=== PATIENT | female | born 1945 | race Caucasian/White ===

== ENCOUNTER → 2017-05-20 | Outpatient (CLI) | payer OTHER ==
[~2017-05-20] MED LIST: ASPI81TA28 PO; ATOR-54 PO; B-CO1TAB29 PO; CALC-20 PO; CYAN3INJ; ESTR0.3T PO; MULTCAP31 PO; OMEG10007 PO; PNT500 PO; SULI200T PO; THYR90TA PO
--- NOTE | 2017-05-21 12:09 | MAMMOGRAPHY REPORT ---
BILATERAL DIGITAL SCREENING MAMMOGRAM WITH CAD: 05/20/2017 CLINICAL HISTORY: Routine screening. Patient has no complaints. TECHNIQUE: Bilateral CC and MLO views were obtained. Current study was also evaluated with a Compute r Aided Detection (CAD) system. COMPARISON: Comparison is made to exams dated: 05/12/2016 mammogram, 05/09/2015 mammogram, 05/04/2013 [facility] mogram, 05/03/2012 mammogram, 04/30/2011 mammogram, and 04/29/2010 mammogram - [facility] er. BREAST COMPOSITION: The tissue of both breasts is heterogeneously dense, which may obscure small mas ses. FINDINGS: There is a 12 mm asymmetry in the middle one third of the right breast, slightly lateral t o the posterior nipple line on the CC view, for which additional spot compression tomosynthesis views and possible ultrasound are recommended. This is thought to project superiorly on the MLO view. No other suspicious mass, architectural distortion or cluster of microcalcifications is seen bilatera lly. IMPRESSION: ACR BI-RADS CATEGORY 0: INCOMPLETE EVALUATION: NEED ADDITIONAL IMAGING EVALUATION The 12 mm asymmetry in the middle one third of the right breast needs additional evaluation. The patient will be called to schedule an appointment. Approximately 10% of breast cancers are not detected with mammography. A negative mammographic report should not delay biopsy if a clinically suggestive mass is present. Emily Vogel M.D. ay/:05/20/2017 16:48:33 Voice Engineer: Cierra CERVANTES(Gopi)(Doreen), [facility] letter sent: Addl Imaging 0 BI-RADS Code: ACR BI-RADS Category 0: Incomplete Evaluation: Need Additional Imaging Evaluation
== END | disposition home or self-care (01) ==
LOC: C.MAMM 14:07
DX: Z12.31 Encounter for screening mammogram for malignant neoplasm of breast (principal); N64.89 Other specified disorders of breast

== ENCOUNTER → 2017-06-03 | Outpatient (CLI) | payer OTHER ==
--- NOTE | 2017-06-03 13:43 | MAMMOGRAPHY REPORT ---
UNILATERAL RIGHT DIGITAL DIAGNOSTIC MAMMOGRAM TOMOSYNTHESIS AND TARGETED RIGHT ULTRASOUND: 06/03/2017 CLINICAL HISTORY: 71 year-old woman called back from screening mammography for a 12 mm asymmetry in t he middle one third of the right breast, best seen on the CC view. TECHNIQUE: Spot compression right CC and MLO 2-D and tomosynthesis images were obtained. COMPARISON: Comparison is made to exams dated: 05/20/2017 mammogram, 05/12/2016 mammogram, 05/09/2015 ma mmogram, 05/08/2014 mammogram, 05/04/2013 mammogram, and 05/03/2012 mammogram - [facility]. BREAST COMPOSITION: The tissue of the right breast is heterogeneously dense, which may obscure small masses. FINDINGS: There is near complete effacement of the 12 mm asymmetry in the middle one third of the rig ht breast, along the posterior nipple line on the CC view with the spot compression CC view and corre sponding tomosynthesis images. There is no evidence of a persistent mass or focal area of architectu ral distortion. No suspicious microcalcifications are seen. No corresponding abnormality is identif ied on the spot compression MLO view. Targeted ultrasound was performed in the right breast from the 11:00 through 1:00, retroareolar and 5 :00 through 7:00 axes. Normal fibroglandular tissue is seen without a discrete solid or cystic mass. IMPRESSION: ACR BI-RADS CATEGORY 2: BENIGN, TARGETED ULTRASOUND ACR BI-RADS CATEGORY 2: BENIGN Effacement of the 12 mm asymmetry in the middle one third of the right breast, and no suspicious sono graphic correlate identified. This most likely represented normal overlapping fibroglandular tissue. There is no mammographic or targeted sonographic evidence of malignancy. Return to annual mammogram screening schedule is recommended. The patient has been verbally notified of the results. Approximately 10% of breast cancers are not detected with mammography. A negative mammographic report should not delay biopsy if a clinically suggestive mass is present. Emily Vogel M.D. ay/:06/03/2017 10:06:08 Billet Straightener: Juliet CERVANTES(Gopi)(Doreen), [facility] letter sent: Normal 1/2 BI-RADS Code: ACR BI-RADS Category 2: Benign Ultrasound BI-RADS: ACR BI-RADS Category 2: Benign
== END | disposition home or self-care (01) ==
LOC: C.MAMM 09:39
DX: R92.8 Other abnormal and inconclusive findings on diagnostic imaging of breast (principal); N64.89 Other specified disorders of breast

== ENCOUNTER 2025-07-22 10:48 | Inpatient (IN) ==
--- NOTE | 2025-07-22 10:57 | Emergency Department Note ---
Impression & Plan Hypertensive emergency, Elevated troponin I level ED Provider Note NAME: ANGIE SANDS AGE: 80 SEX: F : 1945 ARRIVES VIA: Ambulance INFORMANT: Patient, ED PROVIDER(S): Jose Angel Casanova MD CHIEF COMPLAINT: "I feel unwell." MEDICAL DECISION MAKING: Patient presents with the above with feeling general unwellness but not so much in terms of specific symptoms. The patient's did report that she was seen at a PCPs office and LOC even about a week or so ago and was noted to have elevated blood pressure at that time. IV was and blood work was obtained. Patient was ordered IV labetalol 10 mg IV fluids. Nausea medication also provided IV Zofran 4 mg. Upon reassessment the patient's blood pressure was improved in the 160s over 80s. Patient with a normal white count hemoglobin and platelet count kidney function is unremarkable. Patient's troponin is elevated at 14.3. Given this and the patient may have had elevated blood pressure over the last 2 weeks as the patient was "too scared" to check her blood pressure at home even though she was feeling unwell. Patient also had reported that during her most recent primary care visit that her blood pressure was high at the time of evaluation at that time. Patient currently denies any chest pain or shortness of breath. EKG without signs of obvious ischemia. Patient does feel improved. Labs negative. I did speak with the on-call hospitalist Dr. Porras and the patient was admitted to the medicine service. Critical Care: I have personally spent 35 minutes of critical care time in direct management of this patient. This includes bedside care, interpretation of diagnostic studies, and testing, discussion with consultants, patient, and family members, and other require inpatient management activities. This 35 minutes is in excess of all separately billable procedures. Discussion w/ other healthcare providers: Dr. Porras Prior /Outside records reviewed: none Differential diagnosis: Infection, dehydration, metabolic abnormality, hypo/hyperglycemia, electrolyte imbalance, anemia, UTI, pneumonia, thyroid dysfunction among others were considered. Diagnostics, as interpreted by me: ECG: Normal sinus rhythm, rate of 84, normal intervals, normal axis T wave version lead III no ST elevations. Cardiac monitoring: An order was placed for continuous cardiac monitoring. The monitor shows a rate of 87 with sinus rhythm. Patient was placed on pulse oximetry Medical decision rules: None Imaging studies: I informally interpreted the patient's chest x-ray does not show obvious pneumonia or pneumothorax with formal report to follow. HPI: Patient presents today due to concern for feeling generally unwell. The patient states that she has been feeling unwell for at least the last 2 weeks. She reports that he she had a similar episode to today and is about a month ago. The patient did have significant nausea but no vomiting. No chest pain or shortness of breath. Patient reports that she was seen at a PCP office and Paxton Rodgers through [facility] and was told that her blood pressure was significantly elevated at that time. She does not report taking blood pressure medication but does take other meds. No alcohol tobacco or drug use. No known sick contacts or recent travel. Patient denies any falls or trauma. Patient denies any concerns for tick bites or Lyme's. No urinary symptoms. Of note review of the patient's medication list does show losartan 100 mg. Review the patient's fill history does not show evidence of filling the losartan this calendar year. PAST MEDICAL HISTORY: See Below PAST SURGICAL HISTORY: See Below SOCIAL HISTORY: See Below HOME MEDICATIONS: See Below ALLERGIES: See Below VITALS: See Below PHYSICAL EXAMINATION: GENERAL: NAD, non-toxic. Wearing glasses. EYE EXAM: Normal conjunctiva. PERRL, no anisocoria and EOM's grossly intact w/o pain. OROPHARYNX: Moist mucus membranes, grossly normal dentition. NECK: Trachea midline, no stridor. Supple, no nuchal rigidity, no adenopathy, non-tender. No signs of meningismus. FROM of the neck with good chin to chest and neck extension. LUNGS: Clear to auscultation. Normal chest wall mechanics. HEART: NSR, no MRG. ABDOMEN: Abdomen soft, non-tender, no masses, no rebound or guarding. BACK: No CVA TTP. SKIN: No rashes and no bruising. UPPER EXTREMITIES: Upper extremities are grossly normal. LOWER EXTREMITIES: Grossly normal, no edema. NEURO EXAM: Awake and alert, follows commands, no obvious facial asymmetry, normal speech, moves all 4 extremities. Past Med/Surg History Problem List (Updated 07/22/25 @ 16:20 by Jose Angel Casanova MD) Hypertensive emergency (Acute) Elevated troponin I level (Acute) Hypertensive urgency TRISTAN positive Arthritis of knee, right Encounter for pre-operative examination Medical History Hypertension Chronic back pain Osteoarthritis Urinary incontinence GERD (gastroesophageal reflux disease) Neuropathy NON DIABETIC > BILAT FEET Hypothyroidism Depression Anxiety Migraine HX Hyperlipidemia HX Surgical History History of dilatation and curettage History of breast biopsy LEFT History of colonoscopy History of laparoscopy History of hysterectomy History of cataract surgery BILAT Social History Smoking Status: Never smoker Second Hand Exposure: Yes ( KID); Do You Dip or Chew Tobacco: No; Hx Alcohol Use: Yes Alcohol type: beer Hx Substance Use: No Preferred Language: Pashto Communication Ability: Effective Visual Impairment: No Limitations Wheel Filler Required: No Beliefs That Will Affect Care: None Current Living Situation: Alone Feels Safe at Home: Yes Assistive Devices: Cane and Glasses Allergies Allergies Allergy/AdvReac Type Severity Reaction Status Date / Time amoxicillin Allergy Unknown RASH/ITCHIN Verified 07/22/25 12:48 G meloxicam Allergy Unknown RASH/ITCHIN Verified 07/22/25 12:48 G Sulfa (Sulfonamide Allergy Unknown RASH/ITCHIN Verified 07/22/25 12:48 Antibiotics) G Home Meds Home Medications Medication Instructions Recorded Confirmed loratadine 10 mg tablet 10 mg PO HS 03/30/20 07/22/25 thyroid (pork) 90 mg tablet 90 mg PO QAM 03/30/20 07/22/25 ([place] Thyroid) tramadol 50 mg tablet 50 mg PO QAM 03/30/20 07/22/25 conjugated estrogens 0.3 mg tablet 0.3 mg PO HS 02/18/24 07/22/25 (Premarin) cyanocobalamin (vitamin B-12) 1,000 mcg IM MONTHLY 02/18/24 07/22/25 1,000 mcg/mL injection solution ergocalciferol (vitamin D2) 1,250 1,250 mcg PO WK 02/18/24 07/22/25 mcg (50,000 unit) capsule mirabegron 50 mg tablet,extended 50 mg PO QAM 02/18/24 07/22/25 release 24 hr (Myrbetriq) aspirin 81 mg tablet,delayed 81 mg PO QAM 07/22/25 07/22/25 release esomeprazole magnesium 40 mg 40 mg PO DAILYBB 07/22/25 07/22/25 capsule,delayed release sqwdgbql-frbimohx-xiawa acid 500 1 tab PO [facility] 07/22/25 07/22/25 mcg-lutein 5 mg-zeaxanth 1 mg tablet (Macular Vitamin) paroxetine HCl 30 mg tablet 30 mg PO [facility] 07/22/25 07/22/25 Results & Data (ED) Vital Signs Vital Signs - 24 hr 07/22/25 10:35 07/22/25 11:00 07/22/25 11:06 Temperature 36.4 C L Temperature Source Oral Pulse Rate 89 87 Pulse Rate [Apical] Pulse Rate from SpO2 Sensor Respiratory Rate 20 Blood Pressure 200/102 H 197/106 H Blood Pressure [Left Arm] Blood Pressure Mean 134 147 Blood Pressure Mean [Left Arm] Pulse Oximetry 99 Oxygen Delivery Method Room Air Sepsis Recent Fever Within 48 Hours No Sepsis New/Unexplained Change in Mental Status No Sepsis Action Taken by Nursing No Action Required 07/22/25 11:21 07/22/25 11:22 07/22/25 11:45 Temperature Temperature Source Pulse Rate 98 H 76 Pulse Rate [Apical] Pulse Rate from SpO2 Sensor 77 Respiratory Rate 23 Blood Pressure 208/122 H 208/122 H 164/108 H Blood Pressure [Left Arm] Blood Pressure Mean 154 126 Blood Pressure Mean [Left Arm] Pulse Oximetry 93 Oxygen Delivery Method Sepsis Recent Fever Within 48 Hours Sepsis New/Unexplained Change in Mental Status Sepsis Action Taken by Nursing 07/22/25 12:00 07/22/25 12:24 07/22/25 12:33 Temperature Temperature Source Pulse Rate 79 79 77 Pulse Rate [Apical] Pulse Rate from SpO2 Sensor 77 79 77 Respiratory Rate 17 14 18 Blood Pressure 169/81 H 166/86 H Blood Pressure [Left Arm] Blood Pressure Mean 110 112 Blood Pressure Mean [Left Arm] Pulse Oximetry 88 L 91 91 Oxygen Delivery Method Sepsis Recent Fever Within 48 Hours Sepsis New/Unexplained Change in Mental Status Sepsis Action Taken by Nursing 07/22/25 13:04 Temperature Temperature Source Pulse Rate Pulse Rate [Apical] 85 Pulse Rate from SpO2 Sensor Respiratory Rate 20 Blood Pressure Blood Pressure [Left Arm] 203/103 H Blood Pressure Mean Blood Pressure Mean [Left Arm] 136 Pulse Oximetry 95 Oxygen Delivery Method Sepsis Recent Fever Within 48 Hours Sepsis New/Unexplained Change in Mental Status Sepsis Action Taken by [facility] Medications Current Medication List: was personally reviewed by me Laboratory Data Attestation: I reviewed the patient's lab results. 07/22/25 11:24 07/22/25 11:24 Lab Results 07/22/25 Range/Units 11:24 WBC 8.17 (4.8-10.8) K/ul RBC 5.12 (4.20-5.40) M/uL Hgb 13.3 (12.0-16.0) g/dl Hct 42.7 (37.0-47.0) % MCV 83.4 (80.0-100.0) fL MCH 26.0 (25.0-34.0) pg MCHC 31.1 L (32.0-36.0) g/dL RDW Std Deviation 44.4 (36.4-46.3) fL RDW Coeff of Christina 14.7 H (11.5-14.5) % Plt Count 212 (130-400) K/uL MPV 11.6 (9.4-12.4) fL Immature Gran % (Auto) 0.2 % Neut % (Auto) 70.4 % Lymph % (Auto) 16.0 % [place] % (Auto) 12.1 % Eos % (Auto) 1.2 % Baso % (Auto) 0.1 % Neut # (Auto) 5.74 (1.40-6.50) K/uL Lymph # (Auto) 1.31 (1.20-3.40) K/uL [place] # (Auto) 0.99 H (0.11-0.59) K/uL Eos # (Auto) 0.10 (0.00-0.50) K/uL Baso # (Auto) 0.01 (0.00-0.20) K/uL Immature Gran # (Auto) 0.02 (0.01-0.20) K/uL Sodium 136 (136-145) mmol/L Potassium 4.3 (3.5-5.1) mmol/L Chloride 105 (98-107) mmol/L Carbon Dioxide 26 (21-32) mmol/L Anion Gap 5 (3-11) BUN 18 (6-23) mg/dl Creatinine 0.59 L (0.6-1.2) mg/dl Est Cr Clr Drug Dosing 84.7 ml/min eGFR 91.62 BUN/Creatinine Ratio 30.5 H (10-20) Glucose 92 (70-99(Fasting)) mg/dl Calcium 8.7 (8.6-10.3) mg/dl Magnesium 2.0 (1.7-2.4) mg/dl Total Bilirubin 0.3 (0.2-1.0) mg/dl AST 13 (13-39) U/L ALT 9 (7-52) U/L Alkaline Phosphatase 79 (34-104) U/L Troponin I High Sens 14.3 H (0-14) pg/ml Total Protein 6.5 (6.0-8.3) gm/dl Albumin 3.8 (3.4-5.0) gm/dl Globulin 2.7 (2.5-4.0) gm/dl Albumin/Globulin Ratio 1.4 (0.9-2) TSH 0.668 (0.300-4.500) uIu/ml Lyme Disease Screen Negative (Negative) Administered Medications Discontinued Medications Sodium Chloride (Nss) 1,000 mls @ 999 mls/hr IV .Q1H1M PADDY Stop: 07/22/25 12:15 Last Infusion: 07/22/25 15:37 Dose: Infused Documented By: Admin: 07/22/25 11:22 Dose: 999 mls/hr Documented By: VIK Labetalol HCl (Labetalol Hcl Iv 5 Mg/Ml 20ml) 10 mg IV NOW STA Stop: 07/22/25 11:10 Last Admin: 07/22/25 11:21 Dose: 10 mg Documented By: VIK Ondansetron HCl (Ondansetron Inj 2 Mg/Ml 2 Ml Vial) 4 mg IV NOW STA Stop: 07/22/25 11:10 Last Admin: 07/22/25 11:22 Dose: 4 mg Documented By: VIK Imaging Data Radiologist's Impression: Chest X-Ray 07/22/25 11:09 Clinical History: Weakness Technique: A frontal view of the chest was obtained Findings: There are no confluent pulmonary infiltrates. The heart size is within normal limits. No pleural effusion or pneumothorax is seen. There is no definite pulmonary nodule. No fracture is noted. No foreign body is seen Impression: No active disease Electronically signed by Jordan Funez 07-22-2025 11:57 AM Discharge Plan Visit Data Chief Complaint: Vomiting ED Provider: Jose Angel Casanova Discharge Problem: Hypertensive emergency, Elevated troponin I level Patient Disposition: Admitted As Inpatient Condition: Good Discharge Instructions Interventions: ED Discharge Assessment Last Done: 07/22/25 15:01
[2025-07-22] MEDS: LABETALOL HCL IV 5 MG/ML 20ML IV STA (11:21)
[2025-07-22] MEDS: SODIUM CHLORIDE 0.9% 1,000 ML IV SCH (11:22)
[2025-07-22] MEDS: ONDANSETRON INJ 2 MG/ML 2 ML VIAL IV STA (11:22)
[2025-07-22 11:44] LABS: Hematocrit (blood only) 42.7 % (37.0-47.0); Hemoglobin 13.3 g/dl (12.0-16.0); Immature Granulocytes # (auto) 0.02 K/uL (0.01-0.20); Immature Granulocytes % (auto) 0.2 %; Mean Corpuscular Hemoglobin 26.0 pg (25.0-34.0); Mean Corpuscular Volume 83.4 fL (80.0-100.0); Platelet Count 212 K/uL (130-400); RDW Standard Deviation 44.4 fL (36.4-46.3); Red Blood Count 5.12 M/uL (4.20-5.40); White Blood Count 8.17 K/ul (4.8-10.8)
--- NOTE | 2025-07-22 11:58 | XRay Report ---
Clinical History: Weakness Technique: A frontal view of the chest was obtained Findings: There are no confluent pulmonary infiltrates. The heart size is within normal limits. No pleural effusion or pneumothorax is seen. There is no definite pulmonary nodule. No fracture is noted. No foreign body is seen Impression: No active disease Electronically signed by Jodran Funez 07-22-2025 11:57 AM
[2025-07-22 12:01] LABS: Alanine Aminotransferase 9.0 U/L (7-52); Albumin Globulin Ratio 1.4 (0.9-2); Alkaline Phosphatase 79.0 U/L (34-104); Anion Gap 5.0 (3-11); Bilirubin,Total 0.3 mg/dl (0.2-1.0); Blood Urea Nitrogen 18.0 mg/dl (6-23); Calcium 8.7 mg/dl (8.6-10.3); Carbon Dioxide 26.0 mmol/L (21-32); Chloride 105.0 mmol/L (98-107); Creatinine Clr Calc Pharmacy 84.7 ml/min; Globulin 2.7 gm/dl (2.5-4.0); Glucose 92.0 mg/dl (70-99(Fasting)); Magnesium 2.0 mg/dl (1.7-2.4); Potassium 4.3 mmol/L (3.5-5.1); Sodium 136.0 mmol/L (136-145); Total Protein 6.5 gm/dl (6.0-8.3)
[2025-07-22 12:17] LABS: Thyroid Stimulating Hormone 0.668 uIu/ml (0.300-4.500)
--- NOTE | 2025-07-22 13:57 | History & Physical Report ---
Date of Service July 22, 2025 Assessment & Plan (1) Hypertensive urgency: Plan: Patient has a history of hypertension, but does not take any blood pressure medicines at home. Presents to the hospital with nausea and general feeling of unwell Blood pressure on admission 203/103 Mild elevation in troponin Given a dose of IV labetalol 10 mg in the ED Repeat blood pressure 125/90 Will initiate losartan and amlodipine Although patient admits that at home her blood pressures are usually low She was urged to keep a tab of her blood pressure readings every day for the next 1 week and present that to her PCP upon discharge (2) Elevated troponin I level: Plan: Mild elevation, most likely due to demand ischemia No EKG changes No chest pain Trend troponin. Plan Admit to telemetry Full code History of Present Illness Chief Complaint: Nausea, weakness Primary Care Provider: Paxton Lucero This a 80-year-old female with a history of hypertension, anxiety, who presents to the hospital today as a result of feeling generally unwell. According to the patient, she has been feeling unwell for the past couple of weeks, coupled with generalized weakness nausea mild headache. She says she went to a clinic can look even sometime ago and was told that her blood pressure was significantly elevated. She does not remember taking any blood pressure medication at home but says she has a blood pressure measuring kit at home. Here in the emergency department CBC and BMP were essentially within normal limits however blood pressure was 203/103. She was given a dose of IV labetalol and will be admitted to the hospital further management. Of note, troponin was also mildly elevated at 30 Allergies Allergy/AdvReac Type Severity Reaction Status Date / Time amoxicillin Allergy Unknown RASH/ITCHIN Verified 07/22/25 12:48 G meloxicam Allergy Unknown RASH/ITCHIN Verified 07/22/25 12:48 G Sulfa (Sulfonamide Allergy Unknown RASH/ITCHIN Verified 07/22/25 12:48 Antibiotics) G Home Medications Medication Instructions Recorded Confirmed Type loratadine 10 mg tablet 10 mg PO HS 03/30/20 07/22/25 History thyroid (pork) 90 mg tablet 90 mg PO QAM 03/30/20 07/22/25 History (Ernest Thyroid) tramadol 50 mg tablet 50 mg PO QAM 03/30/20 07/22/25 History conjugated estrogens 0.3 mg tablet 0.3 mg PO HS 02/18/24 07/22/25 History (Premarin) cyanocobalamin (vitamin B-12) 1,000 mcg IM MONTHLY 02/18/24 07/22/25 History 1,000 mcg/mL injection solution ergocalciferol (vitamin D2) 1,250 1,250 mcg PO WK 02/18/24 07/22/25 History mcg (50,000 unit) capsule mirabegron 50 mg tablet,extended 50 mg PO QAM 02/18/24 07/22/25 History release 24 hr (Myrbetriq) aspirin 81 mg tablet,delayed 81 mg PO QAM 07/22/25 07/22/25 History release esomeprazole magnesium 40 mg 40 mg PO DAILYBB 07/22/25 07/22/25 History capsule,delayed release ueascvoy-vmzstxbr-barkp acid 500 1 tab PO QAM 07/22/25 07/22/25 History mcg-lutein 5 mg-zeaxanth 1 mg tablet (Macular Vitamin) paroxetine HCl 30 mg tablet 30 mg PO QAM 07/22/25 07/22/25 History Past Med/Surg History Problem List (Updated 07/22/25 @ 13:55 by Liyah Porras MD) Elevated troponin I level Hypertensive urgency TRISTAN positive Arthritis of knee, right Encounter for pre-operative examination Medical History (Updated 07/22/25 @ 13:55 by Liyah Porras MD) Hypertension Chronic back pain Osteoarthritis Urinary incontinence GERD (gastroesophageal reflux disease) Neuropathy NON DIABETIC > BILAT FEET Hypothyroidism Depression Anxiety Migraine HX Hyperlipidemia HX Surgical History History of dilatation and curettage History of breast biopsy LEFT History of colonoscopy History of laparoscopy History of hysterectomy History of cataract surgery BILAT Social History Smoking Status: Never smoker Second Hand Exposure: Yes ( KID); Do You Dip or Chew Tobacco: No; Hx Alcohol Use: Yes Alcohol type: beer Hx Substance Use: No Preferred Language: Fijian Communication Ability: Effective Visual Impairment: No Limitations Grievance And Appeals Coordinator Required: No Beliefs That Will Affect Care: None Current Living Situation: Alone Feels Safe at Home: Yes Assistive Devices: Glasses Review of Systems Review of Systems: All systems reviewed are negative, apart from the ones contained in the history. Physical Exam Physical Exam: The patient is awake, alert and oriented 3, well developed and well nourished, normocephalic and atraumatic, lying in bed and in no acute distress. HEENT--PERRL, EOMI, mucous membranes and oropharynx mildly dry Neck--supple. No JVD. No bruits. Thyroid normal, trachea midline, no adenopathy. Heart--normal S1 and S2. No murmurs, rubs or gallops. Lungs--clear bilaterally, no respiratory distress, no accessory muscle use. Abdomen--normal bowel sounds and soft. Extremities--no cyanosis or clubbing. No edema. Dermatologic--normal skin turgor, normal color, no abnormal lymph nodes, no rash. Neurologic--cranial nerves II through XII grossly intact. Rheumatologic--normal range of motion. Psychiatric--normal affect. Results & Data Results & Data Vital Signs (Past 12 Hours) Vital Signs Temp Pulse Pulse Resp BP BP Pulse Ox 07/22/25 13:04 85 20 203/103 H 95 07/22/25 12:33 77 18 91 07/22/25 12:24 79 14 166/86 H 91 07/22/25 12:00 79 17 169/81 H 88 L 07/22/25 11:45 76 23 164/108 H 93 07/22/25 11:22 208/122 H 07/22/25 11:21 98 H 208/122 H 07/22/25 11:06 87 07/22/25 11:00 197/106 H 07/22/25 10:35 97.5 F L 89 20 200/102 H 99 O2 Del Method 07/22/25 13:04 07/22/25 12:33 07/22/25 12:24 07/22/25 12:00 07/22/25 11:45 07/22/25 11:22 07/22/25 11:21 07/22/25 11:06 07/22/25 11:00 07/22/25 10:35 Room Air PG Care Time/CCT Total # of Minutes Spent Total Time Spent with Patient: Total time spent is greater than 50% in coordination of care (as documented) at patient's floor/unit and/or counseling patient: Coding Level of Care Code 91792 INT INP/OBS CARE 3/75MIN Diagnoses Hypertensive urgency I16.0 Elevated troponin I level R79.89 Time Spent (min) 75
[2025-07-22] MEDS ORDERED: ACETAMINOPHEN 325 MG TAB PO PRN (15:34)
[2025-07-22] MEDS ORDERED: ONDANSETRON INJ 2 MG/ML 2 ML VIAL IV PRN (15:34)
[2025-07-22] MEDS: LOSARTAN POTASSIUM 50 MG TAB PO SCH (16:30)
[2025-07-22] MEDS: LORATADINE 10 MG TAB PO SCH (20:37)
[2025-07-23 05:31] LABS: Appearance Urine Clear (Clear); Glucose Urine UA Negative (Negative)
[2025-07-23] MEDS: ARMOUR THYROID 30 MG TAB PO SCH (09:05)
[2025-07-23] MEDS: VIBEGRON 75 MG TAB PO SCH (09:05)
[2025-07-23] MEDS: ASPIRIN 81 MG ECTAB PO SCH (09:06)
--- NOTE | 2025-07-23 09:32 | Discharge Summary ---
Date of Service July 23, 2025 Admission HPI Per Admitting Provider This a 80-year-old female with a history of hypertension, anxiety, who presents to the hospital today as a result of feeling generally unwell. According to the patient, she has been feeling unwell for the past couple of weeks, coupled with generalized weakness nausea mild headache. She says she went to a clinic can look even sometime ago and was told that her blood pressure was significantly elevated. She does not remember taking any blood pressure medication at home but says she has a blood pressure measuring kit at home. Here in the emergency department CBC and BMP were essentially within normal limits however blood pressure was 203/103. She was given a dose of IV labetalol and will be admitted to the hospital further management. Of note, troponin was also mildly elevated at 30 Admission Exam (Per Admitting) Constitutional The patient is awake, alert and oriented 3, well developed and well nourished, normocephalic and atraumatic, lying in bed and in no acute distress. HEENT--PERRL, EOMI, mucous membranes and oropharynx mildly dry Neck--supple. No JVD. No bruits. Thyroid normal, trachea midline, no adenopathy. Heart--normal S1 and S2. No murmurs, rubs or gallops. Lungs--clear bilaterally, no respiratory distress, no accessory muscle use. Abdomen--normal bowel sounds and soft. Extremities--no cyanosis or clubbing. No edema. Dermatologic--normal skin turgor, normal color, no abnormal lymph nodes, no rash. Neurologic--cranial nerves II through XII grossly intact. Rheumatologic--normal range of motion. Psychiatric--normal affect. Discharge Data Consultations 07/22/25 13:32 ED Decision to Admit Stat Hospital Course (1) Hypertensive urgency: Patient has a history of hypertension, but does not take any blood pressure medicines at home. Presents to the hospital with nausea and general feeling of unwell Blood pressure on admission 203/103 Mild elevation in troponin Given a dose of IV labetalol 10 mg in the ED Repeat blood pressure 125/90 Will initiate losartan and amlodipine Although patient admits that at home her blood pressures are usually low She was urged to keep a tab of her blood pressure readings every day for the next 1 week and present that to her PCP upon discharge Will prescribe Lorsartan HCTZ 50-12.5mg (2) Elevated troponin I level: Mild elevation, most likely due to demand ischemia No EKG changes No chest pain Trend troponin. Plan Admit to telemetry Full code Coding Level of Care Code 23927 INP/OBS DISCH >30 MIN Diagnoses Hypertensive urgency I16.0 Elevated troponin I level R79.89 Time Spent (min) 35
--- NOTE | 2025-07-23 12:31 | Electrocardiogram Report ---
Test Reason : Blood Pressure : */* mmHG Vent. Rate : 84 BPM Atrial Rate : 84 BPM P-R Int : 138 ms QRS Dur : 76 ms QT Int : 338 ms P-R-T Axes : 90 2 27 degrees QTcB Int : 399 ms Normal sinus rhythm Normal ECG When compared with ECG of 25-Apr-1996 10:04, No significant change Confirmed by Natasha Warren (Liam) on 07/23/2025 12:31:21 PM Referred By: REFERRED SELF Confirmed By: Natasha Warren
== END 2025-07-23 13:10 | disposition home or self-care (01) | DRG 305 ==
LOC: ED 10:48 → 4W 13:35